=== PATIENT | male | born 1990 | race Caucasian/White ===

== ENCOUNTER 2019-10-04 13:12 | Emergency (ER) | payer OTHER, SELFPAY ==
[~2019-10-04] VITALS: Ht 177.8 cm; Wt 90.7 kg
[2019-10-04 13:17] VITALS: Ht 177.8 cm; Wt 90.7 kg
[2019-10-04 14:54] VITALS: BP 118/81
== END 2019-10-04 14:54 | disposition home or self-care (01) ==
LOC: ED 13:12
DX: U07.1 COVID-19 (principal)
CPT/HCPCS: U0003-CS